=== PATIENT | female | born 1940 | race Caucasian/White ===

== ENCOUNTER 2022-04-15 02:24 | Inpatient (IN) | payer OTHER ==
[2022-04-15] MEDS ORDERED: PANTOPRAZOLE SODIUM 40 MG VIAL IVPUSH ONE (03:48)
[2022-04-15] MEDS ORDERED: PANTOPRAZOLE SODIUM 80 MG in SODIUM CHLORIDE 100 ML IVPB SCH (04:00)
[2022-04-15] MEDS ORDERED: PANTOPRAZOLE SODIUM 40 MG VIAL ONE (04:04)
[2022-04-15 04:12] LABS: INR 1.22 (0.83-1.09); PROTHROMBIN TIME (PATIENT) 14.1 SEC (9.7-13.0)
[2022-04-15 04:15] LABS: ACTIVATED PTT 35.8 SECONDS (25.2-36.5); BASO % 2.1 % (0-2.0); EOS % 1.8 % (0-4.5); HEMATOCRIT 13.2 % (32.4-45.2); MCHC 25.6 g/dl (32.0-36.0); MEAN PLT VOLUME 8.6 fl (7.5-11.1); NEUT % 51.1 % (42.8-82.8); PLATELET COUNT 232 10^3/uL (134-434); RDW 23.3 % (11.6-15.6); WHITE BLOOD COUNT 4.1 K/mm3 (4.0-10.0)
[2022-04-15 04:37] LABS: CALCIUM 8.8 mg/dL (8.5-10.1)
[2022-04-15 04:38] LABS: ALBUMIN 3.4 g/dl (3.4-5.0); BLOOD UREA NITROGEN 13.2 mg/dL (7-18)
[2022-04-15 04:39] LABS: URINE APPEARANCE TURBID; URINE BILIRUBIN NEGATIVE (NEGATIVE); URINE COLOR YELLOW; URINE GLUCOSE (UA) NEGATIVE (NEGATIVE); URINE KETONE NEGATIVE (NEGATIVE); URINE LEUK ESTERASE 3+ (NEGATIVE); URINE NITRITE POSITIVE (NEGATIVE); URINE PROTEIN 1+ (NEGATIVE)
[2022-04-15 04:41] LABS: CREATININE 0.6 mg/dL (0.55-1.3)
[2022-04-15 04:43] LABS: BILIRUBIN,TOTAL 1.5 mg/dL (0.2-1); TOT PROT 6.8 g/dl (6.4-8.2)
[2022-04-15 04:45] LABS: MCH 14.1 pg (25.7-33.7)
[2022-04-15] MEDS ORDERED: CEFTRIAXONE 1 GM in DEXTROSE 5%-WATER - 100 ML IVPB ONE (04:50)
[2022-04-15 04:52] LABS: HEMOGLOBIN 3.4 GM/dL (10.7-15.3)
[2022-04-15] MEDS ORDERED: CEFTRIAXONE 1 GM/50 ML BAG ONE (05:48)
[2022-04-15 07:40] LABS: EPI CELLS 6.7 /uL (0-25.1); HYALINE CASTS 2.01 /uL (0-3.1); URINE BACTERIA 11217.3 /uL (0-1359); URINE RBC 21.1 /uL (0-23.9); URINE WBC 3259.2 /uL (0-25.8)
[2022-04-15] MEDS ORDERED: SODIUM CHLORIDE 1,000 ML IV SCH (08:00)
[2022-04-15 09:56] LABS: BILIRUBIN,DIRECT 0.4 mg/dL (0.0-0.2)
[2022-04-15] MEDS: POLYETHYLENE GLYCOL (HEALTHYLAX) 3350 17 GM PACKET PO SCH ×2 (12:25→22:28)
[2022-04-15] MEDS: PANTOPRAZOLE 40 MG TABLET PO SCH ×2 (12:25→22:28)
[2022-04-15] MEDS ORDERED: POLYETHYLENE GLYCOL (HEALTHYLAX) 3350 17 GM PACKET ONE (12:27)
[2022-04-15] MEDS ORDERED: PANTOPRAZOLE 40 MG TABLET PO ONE (12:27)
[2022-04-15] MEDS: INSULIN SLIDING SCALE (NOVOLOG) 1 VIAL SQ SCH ×3 (12:32→22:37)
[2022-04-15 16:28] LABS: HEMATOCRIT 33.9 % (32.4-45.2); HEMOGLOBIN 10.6 GM/dL (10.7-15.3); MCH 21.5 pg (25.7-33.7); MCHC 31.4 g/dl (32.0-36.0); MEAN CELL VOLUME 68.5 fl (80-96); MEAN PLT VOLUME 8.9 fl (7.5-11.1); PLATELET COUNT 183 10^3/uL (134-434); RBC 4.94 M/mm3 (3.60-5.2); RDW 29.7 % (11.6-15.6); WHITE BLOOD COUNT 6.7 K/mm3 (4.0-10.0)
[2022-04-15 16:35] VITALS: BMI 22.6
[2022-04-15] MEDS: ATORVASTATIN CA 10 MG TABLET (FP) PO SCH (22:28)
[2022-04-16] MEDS: INSULIN SLIDING SCALE (NOVOLOG) 1 VIAL SQ SCH ×4 (06:05→22:36)
[2022-04-16] MEDS: FUROSEMIDE 20 MG TABLET (FP) PO SCH (06:19)
[2022-04-16 08:21] LABS: BASO % 1.1 % (0-2.0); EOS % 2.2 % (0-4.5); HEMATOCRIT 30.8 % (32.4-45.2); HEMOGLOBIN 9.8 GM/dL (10.7-15.3); LYMPH % 23.8 % (8-40); MCH 21.4 pg (25.7-33.7); MCHC 31.8 g/dl (32.0-36.0); MEAN CELL VOLUME 67.3 fl (80-96); MEAN PLT VOLUME 8.3 fl (7.5-11.1); MONO % 12.8 % (3.8-10.2); NEUT % 60.1 % (42.8-82.8); PLATELET COUNT 175 10^3/uL (134-434); RBC 4.58 M/mm3 (3.60-5.2); RDW 28.8 % (11.6-15.6); WHITE BLOOD COUNT 6.5 K/mm3 (4.0-10.0)
[2022-04-16 09:03] LABS: CALCIUM 8.6 mg/dL (8.5-10.1)
[2022-04-16 09:04] LABS: BLOOD UREA NITROGEN 11.2 mg/dL (7-18)
[2022-04-16 09:07] LABS: CREATININE 0.6 mg/dL (0.55-1.3)
[2022-04-16 09:09] LABS: BILIRUBIN,TOTAL 2.2 mg/dL (0.2-1); TOT PROT 6.2 g/dl (6.4-8.2)
[2022-04-16] MEDS: PANTOPRAZOLE 40 MG TABLET PO SCH ×2 (09:29→21:36)
[2022-04-16] MEDS: POLYETHYLENE GLYCOL (HEALTHYLAX) 3350 17 GM PACKET PO SCH ×2 (09:29→21:36)
[2022-04-16] MEDS: ATORVASTATIN CA 10 MG TABLET (FP) PO SCH (09:35)
[2022-04-16] MEDS ORDERED: CEFTRIAXONE 1 GM in DEXTROSE 5%-WATER - 50 ML IVPB SCH (10:00)
[2022-04-16] MEDS ORDERED: IRON SUCROSE INJECTION 200 MG in SODIUM CHLORIDE 90 ML IVPB ONE (15:58)
[2022-04-17] MEDS: INSULIN SLIDING SCALE (NOVOLOG) 1 VIAL SQ SCH ×4 (06:37→21:57)
[2022-04-17 08:17] LABS: BASO % 1.5 % (0-2.0); HEMATOCRIT 33.3 % (32.4-45.2); HEMOGLOBIN 10.4 GM/dL (10.7-15.3); LYMPH % 18.8 % (8-40); MCH 21.5 pg (25.7-33.7); MCHC 31.3 g/dl (32.0-36.0); MEAN CELL VOLUME 68.8 fl (80-96); MEAN PLT VOLUME 8.6 fl (7.5-11.1); MONO % 12.5 % (3.8-10.2); NEUT % 65.2 % (42.8-82.8); PLATELET COUNT 181 10^3/uL (134-434); RBC 4.83 M/mm3 (3.60-5.2); RDW 29.4 % (11.6-15.6); WHITE BLOOD COUNT 6.7 K/mm3 (4.0-10.0)
[2022-04-17 08:30] LABS: BLOOD UREA NITROGEN 10.4 mg/dL (7-18); CALCIUM 8.3 mg/dL (8.5-10.1); MAGNESIUM 1.9 mg/dL (1.8-2.4)
[2022-04-17 08:33] LABS: CREATININE 0.6 mg/dL (0.55-1.3); PHOSPHOROUS 3.1 mg/dL (2.5-4.9)
[2022-04-17 08:35] LABS: BILIRUBIN,TOTAL 1.5 mg/dL (0.2-1); TOT PROT 6.1 g/dl (6.4-8.2)
[2022-04-17] MEDS: POLYETHYLENE GLYCOL (HEALTHYLAX) 3350 17 GM PACKET PO SCH ×2 (09:32→22:38)
[2022-04-17] MEDS: PANTOPRAZOLE 40 MG TABLET PO SCH ×2 (09:33→22:38)
[2022-04-17] MEDS ORDERED: PEG 3350/NA SULF BICARB CL/KCL 4000 ML SOLN.RECON PO ONE (10:00)
[2022-04-17] MEDS ORDERED: BISACODYL 5 MG TABLET.DR (FP) PO ONE ×2 (20:00→22:45)
[2022-04-17] MEDS: ATORVASTATIN CA 10 MG TABLET (FP) PO SCH (22:35)
[2022-04-18] MEDS: INSULIN SLIDING SCALE (NOVOLOG) 1 VIAL SQ SCH ×4 (06:54→23:25)
[2022-04-18] MEDS ORDERED: INSULIN (NOVOLOG) ASPART 100 UNITS/ML 10ML VIAL ONE (07:55)
[2022-04-18 08:25] LABS: BASO % 1.3 % (0-2.0); EOS % 3.5 % (0-4.5); HEMATOCRIT 32.2 % (32.4-45.2); HEMOGLOBIN 9.9 GM/dL (10.7-15.3); MCH 21.7 pg (25.7-33.7); MCHC 30.8 g/dl (32.0-36.0); MEAN CELL VOLUME 70.4 fl (80-96); MEAN PLT VOLUME 9.1 fl (7.5-11.1); MONO % 12.8 % (3.8-10.2); NEUT % 53.4 % (42.8-82.8); PLATELET COUNT 161 10^3/uL (134-434); RBC 4.57 M/mm3 (3.60-5.2); RDW 30.6 % (11.6-15.6); WHITE BLOOD COUNT 5.1 K/mm3 (4.0-10.0)
[2022-04-18 08:48] LABS: BLOOD UREA NITROGEN 7.8 mg/dL (7-18)
[2022-04-18 08:51] LABS: CALCIUM 8.3 mg/dL (8.5-10.1); CREATININE 0.5 mg/dL (0.55-1.3); MAGNESIUM 1.9 mg/dL (1.8-2.4); PHOSPHOROUS 3.5 mg/dL (2.5-4.9)
[2022-04-18] MEDS: POLYETHYLENE GLYCOL (HEALTHYLAX) 3350 17 GM PACKET PO SCH ×2 (11:00→23:25)
[2022-04-18] MEDS: PANTOPRAZOLE 40 MG TABLET PO SCH ×2 (11:00→23:25)
[2022-04-18] MEDS ORDERED: IRON SUCROSE INJECTION 100 MG in SODIUM CHLORIDE 95 ML IVPB ONE (12:00)
[2022-04-18] MEDS: ATORVASTATIN CA 10 MG TABLET (FP) PO SCH (23:25)
[2022-04-18] MEDS ORDERED: ACETAMINOPHEN 500 MG TABLET (FP) PO ONE (23:33)
[2022-04-19] MEDS: FUROSEMIDE 20 MG TABLET (FP) PO SCH (06:09)
[2022-04-19] MEDS: INSULIN SLIDING SCALE (NOVOLOG) 1 VIAL SQ SCH ×4 (06:10→22:03)
[2022-04-19] MEDS ORDERED: REMDESIVIR 200 MG in SODIUM CHLORIDE 250 ML IVPB ONE (07:00)
[2022-04-19 08:31] LABS: BASO % 0.8 % (0-2.0); EOS % 2.2 % (0-4.5); HEMATOCRIT 35.4 % (32.4-45.2); HEMOGLOBIN 10.8 GM/dL (10.7-15.3); LYMPH % 15.2 % (8-40); MCH 21.8 pg (25.7-33.7); MCHC 30.4 g/dl (32.0-36.0); MEAN CELL VOLUME 71.9 fl (80-96); MEAN PLT VOLUME 8.7 fl (7.5-11.1); MONO % 10.4 % (3.8-10.2); NEUT % 71.4 % (42.8-82.8); PLATELET COUNT 177 10^3/uL (134-434); RBC 4.92 M/mm3 (3.60-5.2); RDW 32.4 % (11.6-15.6); WHITE BLOOD COUNT 8.1 K/mm3 (4.0-10.0)
[2022-04-19 08:58] LABS: CALCIUM 8.5 mg/dL (8.5-10.1)
[2022-04-19 08:59] LABS: ALBUMIN 2.7 g/dl (3.4-5.0); BLOOD UREA NITROGEN 6.4 mg/dL (7-18)
[2022-04-19 09:02] LABS: CREATININE 0.5 mg/dL (0.55-1.3)
[2022-04-19 09:04] LABS: BILIRUBIN,TOTAL 2.3 mg/dL (0.2-1); TOT PROT 5.8 g/dl (6.4-8.2)
[2022-04-19 09:43] LABS: BILIRUBIN,DIRECT 0.4 mg/dL (0.0-0.2)
[2022-04-19] MEDS: PANTOPRAZOLE 40 MG TABLET PO SCH ×2 (09:57→22:03)
[2022-04-19] MEDS: POLYETHYLENE GLYCOL (HEALTHYLAX) 3350 17 GM PACKET PO SCH ×2 (09:57→22:03)
[2022-04-19] MEDS: KCL 10 MEQ IVPB 10 MEQ/100 ML INFUS.BAG IVPB SCH ×3 (09:57→13:17)
[2022-04-19] MEDS: DEXAMETHASONE SOD PHOSPHATE 10 MG/1 ML VIAL IVPUSH SCH (09:58)
[2022-04-19] MEDS ORDERED: DEXAMETHASONE SOD PHOSPHATE 10 MG/1 ML VIAL IVPUSH SCH (10:00)
[2022-04-19] MEDS ORDERED: KCL 10 MEQ IVPB 10 MEQ/100 ML INFUS.BAG IVPB SCH (14:15)
[2022-04-19] MEDS ORDERED: IRON SUCROSE INJECTION 100 MG in SODIUM CHLORIDE 95 ML IVPB ONE (14:30)
[2022-04-19 17:36] LABS: RETICULOCYTES 6.73 % (0.5-1.5)
[2022-04-19] MEDS: ATORVASTATIN CA 10 MG TABLET (FP) PO SCH (22:03)
[2022-04-20] MEDS: FUROSEMIDE 20 MG TABLET (FP) PO SCH (06:13)
[2022-04-20] MEDS: INSULIN SLIDING SCALE (NOVOLOG) 1 VIAL SQ SCH ×4 (06:13→22:36)
[2022-04-20] MEDS: POLYETHYLENE GLYCOL (HEALTHYLAX) 3350 17 GM PACKET PO SCH ×2 (10:42→22:28)
[2022-04-20] MEDS: PANTOPRAZOLE 40 MG TABLET PO SCH ×2 (10:42→22:28)
[2022-04-20] MEDS: DEXAMETHASONE SOD PHOSPHATE 10 MG/1 ML VIAL IVPUSH SCH (10:42)
[2022-04-20] MEDS: REMDESIVIR 100 MG in SODIUM CHLORIDE 250 ML IVPB SCH (10:42)
[2022-04-20] MEDS: ATORVASTATIN CA 10 MG TABLET (FP) PO SCH (22:28)
[2022-04-21] MEDS: FUROSEMIDE 20 MG TABLET (FP) PO SCH (06:14)
[2022-04-21] MEDS: INSULIN SLIDING SCALE (NOVOLOG) 1 VIAL SQ SCH ×3 (06:15→16:51)
[2022-04-21] MEDS: AMINO ACIDS/PROTEIN HYDROLYS 30 ML LIQUID.PKT PO SCH ×2 (09:19→16:42)
[2022-04-21] MEDS: DEXAMETHASONE SOD PHOSPHATE 10 MG/1 ML VIAL IVPUSH SCH (10:04)
[2022-04-21] MEDS: POLYETHYLENE GLYCOL (HEALTHYLAX) 3350 17 GM PACKET PO SCH ×2 (10:05→21:58)
[2022-04-21] MEDS: PANTOPRAZOLE 40 MG TABLET PO SCH ×2 (10:06→21:58)
[2022-04-21] MEDS: REMDESIVIR 100 MG in SODIUM CHLORIDE 250 ML IVPB SCH (10:06)
[2022-04-21] MEDS: VALSARTAN 80 MG TABLET PO SCH (14:11)
[2022-04-21 22:15] LABS: CARCINOEMBRYONIC ANTIGEN 1.6 ng/mL (0.0-4.7)
[2022-04-22] MEDS: ATORVASTATIN CA 10 MG TABLET (FP) PO SCH (01:06)
[2022-04-22] MEDS: INSULIN SLIDING SCALE (NOVOLOG) 1 VIAL SQ SCH ×3 (01:09→11:42)
[2022-04-22] MEDS: FUROSEMIDE 20 MG TABLET (FP) PO SCH (05:59)
[2022-04-22] MEDS: AMINO ACIDS/PROTEIN HYDROLYS 30 ML LIQUID.PKT PO SCH (08:31)
[2022-04-22] MEDS: VALSARTAN 80 MG TABLET PO SCH (10:01)
[2022-04-22] MEDS: POLYETHYLENE GLYCOL (HEALTHYLAX) 3350 17 GM PACKET PO SCH (10:01)
[2022-04-22] MEDS: PANTOPRAZOLE 40 MG TABLET PO SCH (10:01)
[2022-04-22 11:05] VITALS: RESP 17
[2022-04-22 16:27] VITALS: BP 137/52; PULSE 60; TEMP 98
== END 2022-04-22 16:20 | DRG 811 ==
LOC: JER 02:24 → JERBED 03:51 → J4W 17:15 → J7W 04-19 05:54
PROVIDERS: ADMIT Internal Medicine; ATTEND Internal Medicine
PROC: 30233N1 Transfusion of Nonautologous Red Blood Cells into Peripheral Vein, Percutaneous Approach (ICD-10-PCS; 2022-04-15)
PROC: 30233L1 Transfusion of Nonautologous Fresh Plasma into Peripheral Vein, Percutaneous Approach (ICD-10-PCS; 2022-04-15)
PROC: 30233K1 Transfusion of Nonautologous Frozen Plasma into Peripheral Vein, Percutaneous Approach (ICD-10-PCS; 2022-04-15)
PROC: 0DB58ZX Excision of Esophagus, Via Natural or Artificial Opening Endoscopic, Diagnostic (ICD-10-PCS; 2022-04-18)
PROC: 0DB68ZX Excision of Stomach, Via Natural or Artificial Opening Endoscopic, Diagnostic (ICD-10-PCS; principal; 2022-04-18 12:00)
PROC: XW033E5 Introduction of Remdesivir Anti-infective into Peripheral Vein, Percutaneous Approach, New Technology Group 5 (ICD-10-PCS; 2022-04-19)
DX: D50.9 Iron deficiency anemia, unspecified (principal); U07.1 COVID-19; K92.2 Gastrointestinal hemorrhage, unspecified; N39.0 Urinary tract infection, site not specified; N13.30 Unspecified hydronephrosis; I69.354 Hemiplegia and hemiparesis following cerebral infarction affecting left non-dominant side; E11.9 Type 2 diabetes mellitus without complications; K21.9 Gastro-esophageal reflux disease without esophagitis; E78.5 Hyperlipidemia, unspecified; I10 Essential (primary) hypertension; K76.89 Other specified diseases of liver; N31.9 Neuromuscular dysfunction of bladder, unspecified; K22.70 Barrett's esophagus without dysplasia; K44.9 Diaphragmatic hernia without obstruction or gangrene; R82.71 Bacteriuria; B96.89 Other specified bacterial agents as the cause of diseases classified elsewhere; B96.1 Klebsiella pneumoniae [K. pneumoniae] as the cause of diseases classified elsewhere
CPT/HCPCS: 0241U-QW; 36415; 36430; 70450-TC; 71045-TC-FY; 74176-TC; 76775-TC; 76856-TC; 80048; 80053; 81003; 82248; 82272; 82378; 82728; 82962; 83010; 83540; 83550; 83615; 83735; 84100; 84484; 85025; 85027; 85045; 85384; 85610; 85730; 86140; 86850; 86900; 86901; 86922; 87086; 87186; 88305-TC; 93005; 93010; 97116-GP; 97161-GP; 99285-25; C9399; C9803-CS; J1100; J1756; P9017; P9058; U0003; U0005

== ENCOUNTER → 2022-08-10 | Day surgery (SDC) | payer OTHER | END | disposition home or self-care (01) | LOC: JRADUS-SUR 08:13 | PROVIDERS: ATTEND Internal Medicine | PROC: 0H9U3ZX Drainage of Left Breast, Percutaneous Approach, Diagnostic (ICD-10-PCS; principal; 2022-08-10) | DX: C50.912 Malignant neoplasm of unspecified site of left female breast (principal) | CPT/HCPCS: 19083; 87899; 88305-TC; 88342-TC; A4648 ==

== ENCOUNTER 2023-06-16 05:22 | Day surgery (SDC) | payer OTHER ==
[2023-06-12 11:54] VITALS: BMI 25.1
[2023-06-16 09:19] VITALS: TEMP 98.6
[2023-06-16 10:00] VITALS: BP 120/55; PULSE 68; RESP 16
== END 2023-06-16 10:15 | disposition home or self-care (01) ==
LOC: JASU-ENDO 05:22
PROVIDERS: ATTEND Student in an Organized Health Care Education/Training Program
PROC: 0DJD8ZZ Inspection of Lower Intestinal Tract, Via Natural or Artificial Opening Endoscopic (ICD-10-PCS; principal; 2023-06-16 09:00)
DX: D64.9 Anemia, unspecified (principal)
CPT/HCPCS: 82962